=== PATIENT | female | born 1990 | race Asian ===

== ENCOUNTER → 2019-05-08 17:08 | Outpatient (CLI) | payer MEDICAID | END | disposition home or self-care (01) | LOC: D.LDO 17:08 | PROVIDERS: ATTEND Obstetrics & Gynecology | DX: O24.419 Gestational diabetes mellitus in pregnancy, unspecified control (principal); Z3A.32 32 weeks gestation of pregnancy ==

== ENCOUNTER → 2019-05-11 20:09 | Outpatient (CLI) | payer MEDICAID | END | disposition home or self-care (01) | LOC: D.LDO 20:09 | PROVIDERS: ATTEND Obstetrics & Gynecology | DX: O26.899 Other specified pregnancy related conditions, unspecified trimester (principal); Z3A.00 Weeks of gestation of pregnancy not specified ==

== ENCOUNTER → 2019-05-14 09:14 | Outpatient (CLI) | payer MEDICAID | END | disposition home or self-care (01) | LOC: D.LDO 09:14 | PROVIDERS: ATTEND Obstetrics & Gynecology | DX: O24.419 Gestational diabetes mellitus in pregnancy, unspecified control (principal); Z3A.33 33 weeks gestation of pregnancy ==

== ENCOUNTER → 2019-05-17 15:16 | Outpatient (CLI) | payer MEDICAID ==
--- NOTE | 2019-05-17 13:59 | NUR ---
LATE ENTRY, SUICIDE RISK SCREENING DONE AT 1359.
[~2019-05-17 15:16] MED LIST: FERROUS SULFAT325 MG PO; GLYBURIDE5 M1 PO; HYDROCODON-ACE1 EA10 PO; IBUPROFEN600 MG PO
[2019-06-24 06:29] VITALS: BMI 36.0
== END | disposition home or self-care (01) ==
LOC: D.LDO 15:16
PROVIDERS: ATTEND Obstetrics & Gynecology
DX: O24.419 Gestational diabetes mellitus in pregnancy, unspecified control (principal); Z3A.34 34 weeks gestation of pregnancy

== ENCOUNTER → 2019-05-20 20:30 | Outpatient (CLI) | payer MEDICAID | END | disposition home or self-care (01) | LOC: D.LDO 20:30 | PROVIDERS: ATTEND Obstetrics & Gynecology | DX: O24.419 Gestational diabetes mellitus in pregnancy, unspecified control (principal); Z3A.33 33 weeks gestation of pregnancy ==

== ENCOUNTER → 2019-05-23 11:42 | Outpatient (CLI) | payer MEDICAID | END | disposition home or self-care (01) | LOC: D.LDO 11:42 | PROVIDERS: ATTEND Obstetrics & Gynecology | DX: O24.913 Unspecified diabetes mellitus in pregnancy, third trimester (principal); Z3A.32 32 weeks gestation of pregnancy ==

== ENCOUNTER → 2019-05-28 11:07 | Outpatient (CLI) | payer MEDICAID | END | disposition home or self-care (01) | LOC: D.LDO 11:07 | PROVIDERS: ATTEND Obstetrics & Gynecology | DX: O24.913 Unspecified diabetes mellitus in pregnancy, third trimester (principal); Z3A.34 34 weeks gestation of pregnancy ==

== ENCOUNTER → 2019-05-31 17:07 | Outpatient (CLI) | payer MEDICAID | END | disposition home or self-care (01) | LOC: D.LDO 17:07 | PROVIDERS: ATTEND Obstetrics & Gynecology | DX: O24.419 Gestational diabetes mellitus in pregnancy, unspecified control (principal); Z3A.35 35 weeks gestation of pregnancy ==

== ENCOUNTER → 2019-06-05 17:11 | Outpatient (CLI) | payer MEDICAID | END | disposition home or self-care (01) | LOC: D.LDO 17:11 | PROVIDERS: ATTEND Obstetrics & Gynecology | DX: O24.419 Gestational diabetes mellitus in pregnancy, unspecified control (principal); Z3A.34 34 weeks gestation of pregnancy ==

== ENCOUNTER → 2019-06-08 22:06 | Outpatient (CLI) | payer MEDICAID | END | disposition home or self-care (01) | LOC: D.LDO 22:06 | PROVIDERS: ATTEND Obstetrics & Gynecology | DX: O24.913 Unspecified diabetes mellitus in pregnancy, third trimester (principal); Z3A.36 36 weeks gestation of pregnancy ==

== ENCOUNTER → 2019-06-11 12:17 | Outpatient (CLI) | payer MEDICAID | END | disposition home or self-care (01) | LOC: D.LDO 12:17 | PROVIDERS: ATTEND Obstetrics & Gynecology | DX: O36.5930 Maternal care for other known or suspected poor fetal growth, third trimester, not applicable or unspecified (principal); Z3A.37 37 weeks gestation of pregnancy ==

== ENCOUNTER → 2019-06-14 11:29 | Outpatient (CLI) | payer MEDICAID | END | disposition home or self-care (01) | LOC: D.LDO 11:29 | PROVIDERS: ATTEND Obstetrics & Gynecology | DX: O24.419 Gestational diabetes mellitus in pregnancy, unspecified control (principal); Z3A.37 37 weeks gestation of pregnancy ==

== ENCOUNTER → 2019-06-17 09:57 | Outpatient (CLI) | payer MEDICAID ==
[~2019-06-17 09:57] MED LIST changes: -HYDROCODON-ACE1 EA10 PO; -IBUPROFEN600 MG PO
[2019-06-24 06:29] VITALS: BMI 36.0
== END | disposition home or self-care (01) ==
LOC: D.LDO 09:57
PROVIDERS: ATTEND Obstetrics & Gynecology
DX: O24.419 Gestational diabetes mellitus in pregnancy, unspecified control (principal); Z3A.37 37 weeks gestation of pregnancy

== ENCOUNTER → 2019-06-20 18:24 | Outpatient (CLI) | payer MEDICAID ==
[~2019-06-20 18:24] MED LIST changes: +HYDROCODON-ACE1 EA10 PO; +IBUPROFEN600 MG PO
[2019-06-24 06:29] VITALS: BMI 36.0
== END | disposition home or self-care (01) ==
LOC: D.LDO 18:24
PROVIDERS: ATTEND Obstetrics & Gynecology
DX: O24.419 Gestational diabetes mellitus in pregnancy, unspecified control (principal); Z3A.00 Weeks of gestation of pregnancy not specified

== ENCOUNTER 2019-06-24 05:35 | Inpatient (IN) | payer MEDICAID ==
[~2019-06-24] VITALS: Ht 152.4 cm; Wt 83.5 kg
[2019-06-24] MEDS ORDERED: GLYBURIDE5 M1 PO (06:25)
[2019-06-24] MEDS ORDERED: FERROUS SULFAT325 MG PO (06:25)
[2019-06-24 06:29] VITALS: BP 106/55; Ht 152.4 cm; Wt 83.5 kg
[2019-06-24 07:49] LABS: HEMATOCRIT 22.5 % (36.0-48.0); HEMOGLOBIN 7.6 g/dL (12-16); MCH 27.9 pg (26.0-34.0); MCHC 33.8 g/dL (31.0-37.0); MCV 82.7 fL (80.0-100.0); RBC 2.72 10x6/uL (4.00-5.40); RDW 15.1 % (11.5-14.5)
[2019-06-24 10:55] LABS: HEMATOCRIT 31.8 % (36.0-48.0); HEMOGLOBIN 10.7 g/dL (12-16)
[2019-06-24 14:45] LABS: APPEARANCE CLEAR (CLEAR); COLOR STRAW (YELLOW)
[2019-06-24 14:46] LABS: BILIRUBIN NEGATIVE (NEGATIVE); GLUCOSE NEGATIVE (NEGATIVE); KETONE NEGATIVE (NEGATIVE); NITRITE NEGATIVE (NEGATIVE); PROTEIN NEGATIVE (NEGATIVE); SPECIFIC GRAVITY 1.005 (1.005-1.020); UROBILINOGEN NORMAL (NORMAL)
[2019-06-24 14:48] LABS: BACTERIA FEW /hpf (NONE SEEN); WHITE CELLS - URINE OCC /hpf (0-5)
[2019-06-24 23:00] VITALS: BP 127/74
--- NOTE | 2019-06-24 23:00 | NUR ---
VITALS OBTAINED PER SUAD FERGUSONN
--- NOTE | 2019-06-25 | NUR ---
ROUNDS MADE. PT FOUND TO BE UP TO THE BR REPORTING SHE FEELS THE URGE TO HAVE A BM. UNMEASURED VOID REPORTED. SIG OTHER IS WITH PT. PT REPORTS PAIN 0/10. DENIES NEEDS AT THIS TIME. BEDSPREAD FOR PT AND BED LINENS FOR SIG OTHER PROVIDED.
--- NOTE | 2019-06-25 00:58 | NUR ---
ROUNDS MADE. PT LYING IN BED RESTING W/EYES CLOSED. OPENS THEM SPONTANEOUSLY W/VERBAL STIMULOUS. PAIN AND NEEDS ASSESSED. PT REPORTS ABD CRAMPING. RATED 5/10. NORCO OFFERED,ACCEPTED AND ADMINISTERED. FRESH ICE WATER SERVED. NO FURTHER NEEDS VOICED.
--- NOTE | 2019-06-25 01:57 | NUR ---
ROUNDS MADE. PT APPEARS TO BE SLEEPING IN LOW BLUE'S . RESP EVEN AND UNLABORED. PT LEFT UNDISTURBED AT THIS TIME.
--- NOTE | 2019-06-25 04:00 | NUR ---
ROUNDS MADE. PT RESTING QUIETLY IN SUPINE POSITION W/EYES CLOSED. PT APPEARS TO BE SLEEPING. RESP EVEN AND UNLABORED. PT LEFT UNDISTURBED AT THIS TIME.
--- NOTE | 2019-06-25 06:00 | NUR ---
ROUNDS MADE. PT UP TO BR AT THIS TIME. REPORTS HAS VOIDED 3-4 TIMES SINCE DELIVERY W/OUT DIFFICULTY. PAIN AND NEEDS ASSESSED. PT DENIES PAIN OR NEEDS AT THIS TIME. FRESH ICE WATER SERVED.
[2019-06-25 06:09] LABS: RAPID PLASMA REAGIN Non Reactive (Non Reactive)
--- NOTE | 2019-06-25 07:40 | NUR ---
THIS RN TO ROOM FOR SHIFT ASSESSMENT. PT LYING IN BED, SUPINE, HOB 45 DEGREES. PT RESTING WITH EYES CLOSED, RESP EVEN AND UNLABORED. RESP 16. SRUx2, CL IN REACH. PT SIG OTHER RESTING ON BEDSIDE COUCH. PT LEFT UNDISTURBED FOR REST. WILL RETURN FOR SHIFT ASSESSMENT.
[2019-06-25 07:43] LABS: BASOPHILS 0.1 % (0-2); EOSINOPHILS 0.2 % (0-7); HEMATOCRIT 30.8 % (36.0-48.0); HEMOGLOBIN 10.6 g/dL (12-16); IMMATURE GRANULOCYTES 0.2 % (0-5); LYMPHOCYTES 12.4 % (15-50); MCH 28.1 pg (26.0-34.0); MCHC 34.4 g/dL (31.0-37.0); MCV 81.7 fL (80.0-100.0); MEAN PLATELET VOLUME 11.2 fL (7.4-10.4); NEUTROPHILS 81.1 % (40-80)
[2019-06-25 07:51] LABS: PLATELET COUNT 137 10x3/uL (130-400); RBC 3.77 10x6/uL (4.00-5.40); WBC 15.6 10x3/uL (4.8-10.8)
--- NOTE | 2019-06-25 08:08 | NUR ---
DR VANEGAS PHONED WITH AM LAB RESULTS, H/H REVIEWED. NO NEW ORDERS RCVD.
--- NOTE | 2019-06-25 08:48 | NUR ---
THIS RN TO ROOM FOR SHIFT ASSESSMENT. PT CONTINUES RESTING IN SUPINE POSITION, EYES CLOSED. RESP 16, EVEN AND UNLABORED. PT LEFT UNDISTURBED FOR REST. SRUx2, CL IN REACH.
[2019-06-25 09:50] VITALS: BP 117/80
--- NOTE | 2019-06-25 09:50 | NUR ---
THIS RN TO ROOM FOR SHIFT ASSESSMENT. PT NOTED TO BE AWAKE AND SITTING ON SIDE OF BED WITH SIG OTHER AT HER SIDE ON BED. PT AAOx3, RATES PAIN 3/10, UTERINE CRAMPING. SHIFT ASSESSMENT COMPLETED, VSS, SEE FLOWSHEET FOR DOC. PT QUESTIONS LAB RESULTS FROM THIS AM REGARDING BLOOD COUNTS, RESULTS DISCUSSED. POC DISCUSSED, PT VERBALIZES UNDERSTANDING. PT DENIES HEAVY LOCHIA THROUGHOUT NIGHT. PT INSTRUCTED ON REPORT LOCHIA FLOW SATURATING 1 PERIPAD PER HOUR OR SEVERAL CLOTS OR CLOTS LARGER THAN AN EGG. PT ALSO INSTRUCTED ON EMPTYING BLADDER FREQUENTLY TO DECREASE LOCHIA AND CRAMPING. UNDERSTANDING VERBALIZED. FF, DEVIATED TO LEFT, U/2. BLADDER NON-DISTENDED. SMALL RUBRA LOCHIA WITHOUT CLOTS NOTED TO PERIPAD. GENERALIZED EDEMA IN ALL EXTREMITIES, NON-PITTING. NEG PATRICK'S SIGN. IV FLUSHED WITH 3ML NS AND DETERMINED TO BE PATENT. IV COVERED PER PT REQUEST TO SHOWER. WILL ADMIN METHERGINE ORDERED AND MOTRIN FOR CRAMPING PER PT REQUEST, METHERGINE WORSENS CRAMPING.
--- NOTE | 2019-06-25 10:23 | NUR ---
MEDS ADMIN ORDERED, SEE EMAR FOR DOC.
--- NOTE | 2019-06-25 10:25 | NUR ---
SOAPS, TOWELS, CLOTHS, CLEAN GOWN, PANTIES AND PADS PROVIDED TO PT. PT DENIES FURTHER NEEDS AT THIS TIME.
--- NOTE | 2019-06-25 10:30 | NUR ---
PT IN SHOWER, DENIES NEED FOR ASSIST, DENIES FEELING DIZZY OR LIGHTHEADED. SPOUSE IN ROOM TO ASSIST IF NEEDED. BED PADS CHANGED AND TRASH IN ROOM TAKEN OUT. WILL CONT TO MONITOR.
--- NOTE | 2019-06-25 11:54 | NUR ---
THIS RN TO ROOM FOR PT CHECK AND PAIN REASSESSMENT. PT SITTING UP IN BED, . PT REPORTS CRAMPING WITH , PAIN 3/10. PT DENIES NEEDS AT THIS TIME. INSTRUCTED TO CALL FOR ANY NEEDS. SRUx2, CL IN REACH. SPOUSE AT BEDSIDE.
--- NOTE | 2019-06-25 12:52 | NUR ---
THIS RN TO ROOM FOR PT CHECK. PT SITTING ON BEDSIDE COUCH, INFANT. PT DENIES NEEDS, INSTRUCTED TO CALL FOR ANY NEEDS. SIG OTHER IN ROOM WITH PT. WILL CONT TO MONITOR.
--- NOTE | 2019-06-25 13:40 | NUR ---
THIS RN TO ROOM PER REQUEST VIA CALL LIGHT. PT SITTING UP ON BEDSIDE COUCH, HOLDING . STATES SHE WOULD LIKE A BOTTLE OF FORMULA BECAUSE SHE DOESN'T FEEL LIKE INFANT IS "GETTING ENOUGH" FROM . ALSO HAS QUESTION REGARDING TAPE ON 'S IV. NURSERY NURSE NOTIFIED, STATES SHE WILL BRING FORMULA TO ROOM AND INSTRUCT PT ON D-STICKS AND ASSESS IV. PT DENIES PAIN OR NEEDS AT THIS TIME, STATES "I'M OK RIGHT NOW." WILL CONT TO MONITOR.
--- NOTE | 2019-06-25 15:12 | NUR ---
THIS RN TO ROOM FOR PT CHECK. PT REQUESTS SOMETHING FOR CRAMPING. PT INSTRUCTED MOTRIN IS NOT YET AVAILABLE PER ORDERED SCHEDULE. PT STATES SHE WILL TAKE NORCO INSTEAD. WILL ADMIN ORDERED.
--- NOTE | 2019-06-25 16:18 | NUR ---
THIS RN TO ROOM WITH NORCO TAB ORDERED PRN. PT QUESTIONS IF MED IS SAFE FOR BABY. PT INSTRUCTED ON SIDE EFFECTS OF DROWSINESS AND CONSTIPATION, AND TIME WAIT UNTIL MOTRIN IS AVAILABLE. PT STATES "I'LL JUST WAIT UNTIL IT'S TIME FOR THE MOTRIN." WILL RETURN NORCO TO [facility] AND ADMIN MOTRIN TO PT WHEN AVAILABLE.
--- NOTE | 2019-06-25 16:47 | NUR ---
PT HOLDING INFANT, ADM MOTRIN AND METHERGINE PER MD ORDERS, SEE EMAR, PT REPORTS LITE-MOD BLEEDING, CHANGING DEREK PAD EVERY 2-3 HOURS, PT REQUESTED AND SERVED FRESH H20, DENIES FURTHER NEEDS, FOB ON COUCH
--- NOTE | 2019-06-25 17:00 | NUR ---
THIS RN TO ROOM FOR PT CHECK. PT SITTING UP IN BED, HOLDING AND VISITING WITH FAMILY. PT DENIES NEEDS AT THIS TIME. SRUx2, CL IN REACH.
--- NOTE | 2019-06-25 18:00 | NUR ---
to pt's room, pt denies heavy bleeding or passing clots. pt rating pain to abd/cramping and perineal pain/burning as 3/10. pt denies all other needs at this time. sr up x2, call light.
--- NOTE | 2019-06-25 19:20 | NUR ---
PATIENT SITTING ON COUCH . WILL COME BACK TO DO HER ASSESSMENT WHEN SHE IS FINISHED.
--- NOTE | 2019-06-25 20:01 | NUR ---
PATIENT VISITING WITH FAMILY, DENIES NEEDS AT THIS TIME. INVANZ 1 GRAM STARTED IVPB VIA ALARIS PUMP PER MD ORDERS. WILL CONTINUE TO MONITOR.
--- NOTE | 2019-06-25 20:31 | NUR ---
IV ANTIBIOTIC INFUSION COMPLETED AT THIS TIME WITH NO REACTION NOTED. IV FLUSHED WITH 10ML NS AND SALINE LOCKED.
[2019-06-25 21:02] VITALS: BP 117/77
--- NOTE | 2019-06-25 21:02 | NUR ---
SHIFT ASSESSMENT COMPLETED, SEE FLOWSHEET. METHERGINE 0.2MG PO ADMINISTERED PER MD ORDERS. PT DENIES NEEDS OR PAIN AT THIS TIME. BED REMAINS LOCKED IN LOW POSITION, SIDE RAILS UPX2, CALL MORALES AND TRAY TABLE IN REACH.
--- NOTE | 2019-06-25 22:53 | NUR ---
IBUPROFEN ADMINISTERED PER MD ORDERS AND PT REQUEST. SEE EMAR. NO FURTHER NEEDS IDENTIFIED, WILL CONTINUE TO MONITOR.
--- NOTE | 2019-06-26 00:45 | NUR ---
PT SITTING UP IN BED AT THIS TIME, PILLOW PROVIDED TO FOB PER REQUEST. PT DENIES PAIN OR OTHER NEEDS, WILL CONTINUE TO MONITOR.
--- NOTE | 2019-06-26 02:50 | NUR ---
PT SLEEPING, EASILY AROUSED TO VERBAL STIMULI. PT DENIES PAIN OR NEEDS AT THIS TIME.
--- NOTE | 2019-06-26 04:55 | NUR ---
PT SLEEPING, NO DISTRESS NOTED. WILL CONTINUE TO MONITOR.
[2019-06-26 08:00] VITALS: BP 110/76
--- NOTE | 2019-06-26 08:00 | NUR ---
ASSESSMENT DONE. VERBAL RESPONSES APPRO TO QUESTIONS. UP AND ABOUT IN ROOM. DENIES NEEDS -DENIES PAIN. FUNDUS UU/FIRM. SCANT LOCHIA ON PAD.
--- NOTE | 2019-06-26 09:45 | NUR ---
ROUNDS MADE. PT LYING IN BED AWAKE. PAIN AND NEEDS ASSESSED. PT REQUEST PAIN MEDICATION FOR C/O HEADACHE. FRESH ICE WATER SERVED AND PT MEDICATED W/MOTRIN 600MG PO. SEE EMAR. IV SITE FLUSHED. FLUSHES WELL. SITE SECURED. PT DENIES FURTHER NEEDS AT THIS TIME.
--- NOTE | 2019-06-26 10:45 | NUR ---
ROUNDS MADE. PT CURRENTLY STANDING UP A CRIB SIDE TENDING TO . PAIN AND NEEDS ASSESSED. PT REPORTS HEADACHE IS GONE AND DENIES NEEDS AT THIS TIME.
--- NOTE | 2019-06-26 14:53 | NUR ---
pt resting in bed. states she is having some cramping- rates pain a 5 on scale of 0-10. requests motrin.
--- NOTE | 2019-06-26 14:55 | NUR ---
explained that too early for motrin- states she will take a norco 5.
[2019-06-26 14:57] VITALS: BP 111/67
--- NOTE | 2019-06-26 17:48 | NUR ---
sitting up in bedside chair- states that headache is better but co cramping. med to be given.
--- NOTE | 2019-06-26 19:08 | NUR ---
BEDSIDE SHIFT REPORT COMPLETED WITH BRITTANY MULLIGAN RN TO ASSUME PATIENT CARE. PT CURRENTLY , DENIES PAIN OR NEEDS, WILL CONTINUE TO MONITOR
--- NOTE | 2019-06-26 20:07 | NUR ---
INVANZ 1 GRAM ADMINISTERED IVPB AT THIS TIME VIA ALARIS PUMP
--- NOTE | 2019-06-26 20:37 | NUR ---
INVANZ INFUSION COMPLETED, NO REACTION NOTED, IV FLUSHED WITH NS AND SALINE LOCKED.
[2019-06-26 20:50] VITALS: BP 112/68
--- NOTE | 2019-06-26 20:50 | NUR ---
SHIFT ASSESSMENT COMPLETED. SEE FLOWSHEET.
--- NOTE | 2019-06-26 21:59 | NUR ---
PATIENT UP TO BATHROOM, PT HAS PLEMTY OF PADS AND PANTIES. NO NEEDS IDENTIFIED AT THIS TIME. REMAINS IN OPEN CRIB AT BEDSIDE. WILL CONTINUE TO MONITOR.
--- NOTE | 2019-06-26 23:30 | NUR ---
ICE WATER PROVIDED PER PT REQUEST AND IV REMOVED WITHOUT INCIDENT PER PT REQUEST. PRESSURE AND BANDAID APPLIED.
--- NOTE | 2019-06-27 | NUR ---
PATIENT SITTING UP IN BED. DENIES ANY NEEDS OR CONCERNS AT THIS TIME. BED IN LOWEST POSITION, SIDE RAILS UP X 2, C/L AND WATER WITHIN REACH.
--- NOTE | 2019-06-27 02:00 | NUR ---
PATIENT LYING QUIETLY IN BED WITH EYES CLOSED. RESPIRATIONS AT EASE. NO SIGNS OF DISTRESS NOTED. BED IN LOWEST POSITION, SIDE RAILS UP X 2, C/L AND WATER WITHIN REACH.
--- NOTE | 2019-06-27 04:00 | NUR ---
PATIENT SITTING UP IN BED. DENIES ANY PAIN AT THIS TIME. BED IN LOWEST POSITION, SIDE RAILS UP X 2, C/L AND WATER WITHIN REACH.
--- NOTE | 2019-06-27 04:47 | NUR ---
PATIENT SITTING UP IN BED HOLDING INFANT. STATES PAIN 6 OUT OF 10. PRN MOTRIN 600 MG ADMINISTERED PO. PATIENT DENIES ANY FURTHER NEEDS. BED IN LOWEST POSITION, SIDE RAILS UP X 2, C/L AND WATER WITHIN REACH.
--- NOTE | 2019-06-27 07:55 | NUR ---
THIS RN TO ROOM FOR SHIFT ASSESSMENT. PT SITTING UP IN BED, CHANGING 'S DIAPER. PT RATES PAIN APPROX 5-6/10, UTERINE CRAMPING, REQUESTS PAIN MED. WILL ADMIN ORDERED.
[2019-06-27 08:06] VITALS: BP 129/78
--- NOTE | 2019-06-27 08:06 | NUR ---
PT ADMIN PRN NORCO ORDERED FOR PAIN, SEE EMAR FOR DOC. SHIFT ASSESSMENT COMPLETED, VSS, SEE FLOWSHEET FOR DOC. FF, SLIGHT DEVIATION TO LEFT BUT MORE MIDLINE THAN PREVIOUS ASSESSMENT BY THIS RN, U/2. SMALL RUBRA LOCHIA. PT REPORTS "LIGHT BLEEDING" AND DENIES ANY CONCERNS WITH HEAVY LOCHIA. PT INSTRUCTED ON S/S TO REPORT. UNDERSTANDING VERBALIZED. POC AND DISCHARGE DISCUSSED WITH PT. PT STATES SHE IS READY TO GO HOME. PT REQUESTS PANTIES AND DERMAPLAST SPRAY. WILL PROVIDE REQUESTED.
--- NOTE | 2019-06-27 08:24 | NUR ---
PT PROVIDED WITH PANTIES AND DERMAPLAST REQUESTED, SEE EMAR FOR DOC. PT DENIES FURTHER NEEDS AT THIS TIME. SRUx2, CL IN REACH. PT SITTING IN BED HOLDING INFANT, SPOUSE AT BEDSIDE. WILL CONT TO MONITOR.
[2019-06-27] MEDS ORDERED: HYDROCODON-ACE1 EA10 PO (09:45)
[2019-06-27] MEDS ORDERED: IBUPROFEN600 MG PO (09:45)
--- NOTE | 2019-06-27 10:14 | NUR ---
PT GIVEN DISCHARGE INSTRUCTIONS WELL WRITTEN PRESCRIPTION FOR PAIN CONTROL POST D/C TO HOME. PT VERBALIZES UNDERSTANDING AND DENIES QUESTIONS, SIGNS CHART COPIES. PT REQUESTS MOTRIN BEFORE RIDE HOME IF IT IS TIME. WILL ADMIN ORDERED.
--- NOTE | 2019-06-27 10:18 | NUR ---
PT ADMIN PRN MOTRIN REQUESTED, SEE EMAR FOR DOC. PT DENIES ANY OTHER NEEDS AT THIS TIME. PT INSTRUCTED TO CALL OUT WHEN IS BUCKLED IN [place] AND IS READY FOR W/C OUT. UNDERSTANDING VERBALIZED.
--- NOTE | 2019-06-27 10:40 | NUR ---
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 THIS RN TO ROOM. PT TAKEN OUT VIA W/C TO PRIVATE VEHICLE FOR D/C TO, INFANT BUCKLED IN [place], SIG OTHER TO DRIVE HOME.
== END 2019-06-27 10:40 | disposition home or self-care (01) | DRG 807 ==
LOC: D.LD 05:35
PROVIDERS: ADMIT Obstetrics & Gynecology; ATTEND Obstetrics & Gynecology
PROC: 10E0XZZ Delivery of Products of Conception, External Approach (ICD-10-PCS; principal; 2019-06-24)
PROC: 10907ZC Drainage of Amniotic Fluid, Therapeutic from Products of Conception, Via Natural or Artificial Opening (ICD-10-PCS; 2019-06-24)
PROC: 3E033VJ Introduction of Other Hormone into Peripheral Vein, Percutaneous Approach (ICD-10-PCS; 2019-06-24)
DX: O24.429 Gestational diabetes mellitus in childbirth, unspecified control (principal); Z37.0 Single live birth; Z3A.39 39 weeks gestation of pregnancy; O66.0 Obstructed labor due to shoulder dystocia; O62.2 Other uterine inertia